=== PATIENT | female | born 1975 | race Caucasian/White ===

== ENCOUNTER 2018-07-05 11:50 | Emergency (ER) | payer SELFPAY ==
[~2018-07-05] VITALS: Ht 167.6 cm; Wt 70.0 kg
[2018-07-05 12:03] VITALS: BP 146/62
== END 2018-07-05 14:24 | disposition left against medical advice (07) ==
LOC: ER 11:50
DX: F10.229 Alcohol dependence with intoxication, unspecified (principal); Z53.21 Procedure and treatment not carried out due to patient leaving prior to being seen by health care provider; Y90.9 Presence of alcohol in blood, level not specified